=== PATIENT | female | born 1980 | race African-American/Black ===

== ENCOUNTER 2017-02-06 09:53 | Inpatient (IN) | payer MEDICAID ==
[~2017-02-06] VITALS: Ht 177.8 cm; Wt 96.6 kg
[~2017-02-06 09:53] MED LIST: AMLO10TA4 PO; ASPI-1073 PO; ASPI-1159 PO; DIPH25CA83 PO; FAMO-135 PO; HYDR-3927 PO; HYDR-523 PO; HYDR25TA PO; ISOS30TA PO; MED4 GT; OMEP20CA10 PO; OMEP20CA4 PO; ONDA4TAB5 PO; SERT20OR PO; SERT25TA PO
[2017-02-06] MEDS ORDERED: LISI10TA5 PO ×2 (10:05→15:54)
[2017-02-06] MEDS ORDERED: METF500T4 PO ×2 (10:05→15:55)
[2017-02-06] MEDS ORDERED: SODIUM CHLORIDE 0.9% 1,000 ML IV ONE (10:20)
[2017-02-06] MEDS ORDERED: LACTATED RINGERS 1,000 ML IV STA (10:26)
[2017-02-06] MEDS ORDERED: METOCLOPRAMIDE HCL 10MG/2ML VIAL IV ONE (10:30)
[2017-02-06] MEDS ORDERED: MORPHINE SULFATE 4 MG/ML CPJ (NOT FOR IM USE) IV ONE ×2 (10:30→14:30)
[2017-02-06] MEDS ORDERED: DIPHENHYDRAMINE 12.5MG/5ML UDC PO ONE (10:30)
[2017-02-06 10:41] LABS: EOSINOPHILS % 0.6 % (0.0-5.0); HEMATOCRIT. 39.9 % (36.0-48.0); HEMOGLOBIN. 13.9 g/dL (12.0-16.0); MEAN CORPUSCULAR VOLUME 94.7 fL (81.0-99.0); MEAN PLATELET VOLUME 7.7 fl (7.4-10.4); MONOCYTES % 3.9 % (2.0-8.0); NEUTROPHILS % 79.5 % (40.0-76.0); PLATELET 274 x1000/uL (130-400); RED BLOOD CELL COUNT 4.21 mill/uL (4.2-5.4); RED CELL DISTRIBUTION WIDTH 14.4 % (11.6-14.6)
[2017-02-06 10:58] LABS: CARBON DIOXIDE 20 mEq/L (21-32); CHLORIDE 109 mEq/L (98-107); TROPONIN I 0.26 ng/mL (0.00-0.04)
[2017-02-06 11:02] LABS: HCG SCREEN NEGATIVE
[2017-02-06 11:05] LABS: PROTHROMBIN TIME 10.8 sec
[2017-02-06] MEDS ORDERED: ONDANSETRON HCL 4MG/2ML VIAL IV ONE (12:15)
[2017-02-06] MEDS ORDERED: ONDA4TAB5 PO (15:52)
[2017-02-06] MEDS ORDERED: METO-293 PO (15:54)
[2017-02-06] MEDS ORDERED: ASPI-1159 PO (15:54)
[2017-02-06] MEDS ORDERED: FAMO-134 PO (15:55)
[2017-02-06] MEDS ORDERED: HYDR-523 PO (15:55)
[2017-02-06] MEDS ORDERED: HYDRALAZINE 20MG/ML VIAL IV PRN (16:30)
[2017-02-06] MEDS ORDERED: DEXTROSE 50% WATER 50ML SYRINGE IV PRN (16:30)
[2017-02-06] MEDS ORDERED: METOCLOPRAMIDE HCL 10MG/2ML VIAL IV PRN (16:30)
[2017-02-06] MEDS ORDERED: LORAZEPAM 2MG/ML CPJ IV PRN ×2 (16:30→20:30)
[2017-02-06] MEDS: DIPHENHYDRAMINE 50MG/ML VIAL IV PRN ×2 (17:02→22:40)
[2017-02-06] MEDS: SODIUM CHLORIDE 0.9% 1,000 ML IV SCH (17:09)
[2017-02-06] MEDS: INSULIN LISPRO 100 UNITS/ML SUBCUT SCH ×2 (17:16→21:00)
[2017-02-06] MEDS: BLOOD SUGAR DIAGNOSTIC STRIP TEST SCH ×2 (17:16→21:28)
[2017-02-06] MEDS: FAMOTIDINE 20MG/2ML VIAL IV SCH (18:20)
[2017-02-06] MEDS: MORPHINE SULFATE 4 MG/ML CPJ (NOT FOR IM USE) IV PRN (18:21)
[2017-02-06] MEDS ORDERED: FAMOTIDINE 20MG/2ML VIAL IV SCH (21:00)
[2017-02-06] MEDS: ONDANSETRON HCL 4MG/2ML VIAL IV PRN (22:40)
[2017-02-07] MEDS: SODIUM CHLORIDE 0.9% 1,000 ML IV SCH ×3 (02:18→21:37)
[2017-02-07] MEDS: MORPHINE SULFATE 4 MG/ML CPJ (NOT FOR IM USE) IV PRN ×4 (04:08→23:27)
[2017-02-07] MEDS: INSULIN LISPRO 100 UNITS/ML SUBCUT SCH ×4 (08:10→21:00)
[2017-02-07] MEDS: BLOOD SUGAR DIAGNOSTIC STRIP TEST SCH ×4 (08:10→21:28)
[2017-02-07] MEDS: FAMOTIDINE 20MG/2ML VIAL IV SCH ×2 (08:32→21:00)
[2017-02-07] MEDS: DIPHENHYDRAMINE 50MG/ML VIAL IV PRN ×2 (13:05→21:00)
[2017-02-07] MEDS: ONDANSETRON HCL 4MG/2ML VIAL IV PRN ×2 (13:05→21:00)
[2017-02-08] MEDS: MORPHINE SULFATE 4 MG/ML CPJ (NOT FOR IM USE) IV PRN ×2 (05:27→11:33)
[2017-02-08] MEDS: BLOOD SUGAR DIAGNOSTIC STRIP TEST SCH ×2 (06:40→12:47)
[2017-02-08] MEDS: INSULIN LISPRO 100 UNITS/ML SUBCUT SCH ×2 (07:24→12:47)
[2017-02-08] MEDS: DIPHENHYDRAMINE 50MG/ML VIAL IV PRN (08:24)
[2017-02-08] MEDS: SODIUM CHLORIDE 0.9% 1,000 ML IV SCH (08:24)
[2017-02-08] MEDS: FAMOTIDINE 20MG/2ML VIAL IV SCH (08:24)
[2017-02-08 13:46] VITALS: BP 128/78
== END 2017-02-08 14:10 | disposition home or self-care (01) | DRG 48 ==
LOC: ER 09:54 → 7WST 12:59 → EDBEDREQ 13:10 → ENRESERV 13:31
PROVIDERS: ADMIT Internal Medicine; ATTEND Internal Medicine
DX: E11.43 Type 2 diabetes mellitus with diabetic autonomic (poly)neuropathy (principal); I42.9 Cardiomyopathy, unspecified; M54.9 Dorsalgia, unspecified; I44.30 Unspecified atrioventricular block; K31.84 Gastroparesis; Z88.8 Allergy status to other drugs, medicaments and biological substances; Z91.011 Allergy to milk products; Z79.84 Long term (current) use of oral hypoglycemic drugs; Z79.899 Other long term (current) drug therapy; Z90.49 Acquired absence of other specified parts of digestive tract; Z98.891 History of uterine scar from previous surgery; Z82.49 Family history of ischemic heart disease and other diseases of the circulatory system; Z79.82 Long term (current) use of aspirin
CPT/HCPCS: 36415; 71010; 80053; 82962; 83036; 83605; 83690; 84484; 84703; 85025; 85610; 93005; 93306; 96361; 96372; 96374; 96375; 96376; 99285; J0360; J1200; J2060; J2270; J2405; J2765; J3490; J7030; J7120; Q0163